=== PATIENT | female | born 1945 | race Caucasian/White ===

== ENCOUNTER → 2018-11-03 | Day surgery (SDC) | payer OTHER, MEDICARE ==
--- NOTE | 2018-11-03 20:28 | OP ---
DATE OF OPERATION: 11/03/2018 PREOPERATIVE DIAGNOSIS: Left breast mass at 11 o'clock, 12 cm from the nipple. POSTOPERATIVE DIAGNOSIS: Left breast mass at 11 o'clock, 12 cm from the nipple. PROCEDURE: Left ultrasound-guided core biopsy with clip placement. ANESTHESIA: Local. ATTENDING SURGEON: Alec Recinos MD ESTIMATED BLOOD LOSS: Minimal. COMPLICATIONS: None. PROCEDURE IN DETAIL: The patient was made aware of the risks and benefits of the procedure and consented. She was placed in the supine position under sterile conditions with 1% lidocaine for local anesthesia. A small kayden was made in the skin. Using the 13-gauge suction biopsy the lateral approach under ultrasound guidance, 6 cores were obtained and submitted to pathology. Under ultrasound guidance, a U-shaped clip into the biopsy region. Well-tolerated by patient. Steri-Strips and a sterile bandage were applied. This was well-tolerated by the patient. ALEC RECINOS M.D. [id number]
--- NOTE | 2018-11-05 15:15 | PATH ---
Surgical Pathology Report Patient Name: AYSHA ANDREWS [facility]. Rec. #: [id number] /Age/Gender: 1945 (Age: 72) / F Account: [id number] Location: [facility] BREAST CENT Taken: 11/03/2018 Received: 11/03/2018 Reported: 11/05/2018 Physicians: Tom Ayala M.D. Specimen(s) Received LEFT BREAST CORE BIOPSY 11N12 Clinical History Palpable mass Ultrasound findings: Probably benign Final Diagnosis BREAST, LEFT, 11:00, 12 CM FN, CORE BIOPSY: BENIGN FIBROADIPOSE TISSUE SHOWING FAT NECROSIS AND DENSE FIBROSIS WITH ASSOCIATED CALCIFICATIONS. Electronically Signed Abigail Kowalski M.D. Gross Description Received in formalin labeled "left breast biopsy 11:00, 12cmfn," is a 2.0 x 1.5 x 0.2 cm aggregate of hogan-yellow, irregular to cylindrical portions of fibroadipose tissue. The formalin is filtered and the specimen is entirely submitted in one cassette. Time to formalin fixation: < 1 minute Total formalin fixation time: Approximately 28 hours. /11/04/[address] [facility]11/04/2018
== END | disposition home or self-care (01) ==
LOC: FRADUS-SUR 12:12
PROVIDERS: ATTEND Surgery Surgical Oncology
PROC: 0HBU3ZX Excision of Left Breast, Percutaneous Approach, Diagnostic (ICD-10-PCS; principal; 2018-11-03)
DX: N64.1 Fat necrosis of breast (principal); N63.22 Unspecified lump in the left breast, upper inner quadrant; N64.89 Other specified disorders of breast
CPT/HCPCS: 19083; 87899; 88305-TC; A4648